=== PATIENT | female | born 1970 | race Two or more races ===

== ENCOUNTER 2018-07-15 17:28 | Emergency (ER) | payer BC ==
[~2018-07-15] VITALS: Ht 167.6 cm; Wt 67.6 kg
[~2018-07-15 17:28] MED LIST: ACET650T11 PO; IBUP200C5 PO
[2018-07-15 17:33] VITALS: BP 119/68
== END 2018-07-15 18:27 | disposition home or self-care (01) ==
LOC: ER 17:33
DX: M54.6 Pain in thoracic spine (principal); F32.9 Major depressive disorder, single episode, unspecified
CPT/HCPCS: 99283; A4606; Z7610